=== PATIENT | female | born 1955 | race Caucasian/White ===

== ENCOUNTER 2022-02-24 05:33 | Outpatient (CLI) | payer BC, MEDICARE ==
[~2022-02-24] VITALS: Ht 182 cm; Wt 100.0 kg
[2022-02-24] MEDS ORDERED: OMEP20CA18 PO (13:41)
[2022-02-24] MEDS ORDERED: MELO15TA14 PO (13:41)
== END 2022-02-24 13:51 | disposition home or self-care (01) ==
LOC: EDBD 05:33 → PREOP 05:33
PROVIDERS: ATTEND Otolaryngology Otolaryngology/Facial Plastic Surgery
DX: Z01.818 Encounter for other preprocedural examination (principal)

== ENCOUNTER 2022-03-02 08:06 | Day surgery (SDC) | payer MEDICARE, OTHER ==
[2022-03-02] VITALS (8 sets, daily range): BP systolic 107–142; BP diastolic 52–83
[~2022-03-02] VITALS: Ht 182 cm; Wt 100.0 kg
[~2022-03-02 08:06] MED LIST: MELO15TA14 PO; OMEP20CA18 PO
[2022-03-02] MEDS ORDERED: LACTATED RINGERS 1,000 ML IV PRN (08:45)
--- NOTE | 2022-03-02 09:23 | Progress Note-Pre Operative ---
Pre-Operative Progress Note H&P Reviewed The H&P was reviewed, patient examined and no changes noted. Date Seen by Provider: Mar 02, 2022 Time Seen by Provider: 09:15 Date H&P Reviewed: Mar 02, 2022 Time H&P Reviewed: 09:15 Pre-Operative Diagnosis: cHRONIC cortney BRAD LI MD Mar 02, 2022 09:23
--- NOTE | 2022-03-02 09:24 | Progress Note-Post Operative ---
Post-Operative Progess Note Surgeon (s)/Coil Machine Operator (s) Surgeon BRAD LI MD Coil Machine Operator n/a Pre-Operative Diagnosis cHRONIC cortney Post-Operative Diagnosis same Post-Op Procedure Note Date of Procedure: Mar 02, 2022 Name of Procedure Performed: Right Myringotomy with T-Tube Description & Findings Description and Findings: n/a Anesthesia Type lma Estimated Blood Loss minimal Packing none. Specimen(s) collected/removed none BRAD LI MD Mar 02, 2022 09:24
[2022-03-02] MEDS ORDERED: APAP 325 MG/10.15 ML LIQ (TYLENOL) UDC PO PRN (09:30)
[2022-03-02] MEDS ORDERED: fentaNYL INJ 100 MCG/2 ML AMP ONE (09:42)
[2022-03-02] MEDS ORDERED: LIDOCAINE 2% 20 ML (XYLOCAINE) VIAL ONE (09:44)
[2022-03-02] MEDS ORDERED: LIDOCAINE PF 2% 5 ML (XYLOCAINE) VIAL ONE (09:44)
[2022-03-02] MEDS ORDERED: proPOfol 200 MG/20 ML (DIPRIVAN) VIAL IV ONE (09:44)
[2022-03-02] MEDS ORDERED: SEVOFLURANE (ULTANE) 15 ML INHAL SOLN ONE (09:45)
[2022-03-02] MEDS ORDERED: CIPR5DRO OP (09:46)
--- NOTE | 2022-03-02 11:06 | Anesthesia-General Post-Op ---
General Patient Condition Mental Status/LOC: Same as Preop Cardiovascular: Satisfactory Nausea/Vomiting: Absent Respiratory: Satisfactory Pain: Controlled Complications: Absent Post Op Complications Complications None Follow Up Care/Instructions Patient Instructions None needed. Anesthesia/Patient Condition Patient Condition Patient is doing well, no complaints, stable vital signs, no apparent adverse anesthesia problems. No complications reported per nursing. RON HARVEY CRNA Mar 02, 2022 11:06
== END 2022-03-02 11:20 | disposition home or self-care (01) ==
LOC: EDBD → SDC 08:06
PROVIDERS: ATTEND Otolaryngology Otolaryngology/Facial Plastic Surgery
DX: H65.21 Chronic serous otitis media, right ear (principal)
CPT/HCPCS: 87081